=== PATIENT | male | born 1985 | race Caucasian/White ===

== ENCOUNTER 2016-12-06 15:15 | Inpatient (IN) | payer OTHER ==
[~2016-12-06] VITALS: Ht 172.7 cm; Wt 53.5 kg
[~2016-12-06 15:15] MED LIST: ATIVAN1 MG PO; BUSPIRONE5 M1 PO; DOCUSATE100 M1 PO; HYDROXYZINE HCL25 MG PO; LEVAQUIN750 MG PO; NAPROXEN250 MG PO; STRIBILD1 TAB PO; SULFAMETHOXAZOL1 PO1 PO; [UNRECOGNIZED DRUG - OTHER] PO
[2016-12-06 17:16] LABS: BASOPHIL % 0.4 % (0-2); PLATELET COUNT 190 x10^3mcL (130-400); RED CELL DISTRIBUTION WIDTH 13.6 % (11.5-14.5)
[2016-12-06 17:25] LABS: CALCIUM 8.8 mg/dL (8.5-10.1); CARBON DIOXIDE 26.5 mmol/L (21-32); CHLORIDE SERUM 103 mmol/L (98-107); CREATININE SERUM 0.9 mg/dL (0.7-1.3); GFR1 > 60 mL/min; GLUCOSE SERUM 93 mg/dL (74-106); SODIUM SERUM 135 mmol/L (136-145)
[2016-12-06 17:26] LABS: microscopic required? NO
[2016-12-06 17:32] LABS: UA SPECIFIC GRAVITY <=1.005 (1.005-1.035); urine erythrocyte NEGATIVE (NEGATIVE)
[2016-12-06 17:37] LABS: ALBUMIN 2.9 g/dL (3.4-5.0); ALKALINE PHOSPHATASE 78 U/L (46-116); ALT/SGPT 75 U/L (16-63); AST/SGOT 85 U/L (15-37); BILIRUBIN TOTAL 0.28 mg/dL (0.20-1.00); LACTIC DEHYDROGENASE (LDH) 99 U/L (100-190); TOTAL PROTEIN, SERUM 10.5 g/dL (6.4-8.2)
[2016-12-06 17:41] LABS: CK-MB 0.6 ng/mL (0-3.6)
[2016-12-06 19:13] LABS: MAGNESIUM 1.8 mg/dL (1.8-2.4); PHOSPHOROUS 3.7 mg/dL (2.5-4.9)
[2016-12-06 19:15] LABS: CHOLESTEROL/HDL RATIO 3.1
[2016-12-06 19:20] LABS: T3 TOTAL 1.15 ng/mL
[2016-12-06 19:23] LABS: FREE THYROXINE INDEX 2.9 ug/dL (1.4-4.5)
[2016-12-06 20:10] LABS: AMPHETAMINE QUAL UR NONE DETECTED (NEG <=1000)
[2016-12-06] MEDS ORDERED: ATIVAN1 MG PO (20:26)
[2016-12-06 21:34] VITALS: BP 113/83
[2016-12-06 23:31] VITALS: BP 113/83
[2016-12-07 05:19] VITALS: BP 108/65
[2016-12-07 06:10] LABS: CALCIUM 8.1 mg/dL (8.5-10.1); CARBON DIOXIDE 26.6 mmol/L (21-32); CHLORIDE SERUM 106 mmol/L (98-107); CREATININE SERUM 0.8 mg/dL (0.7-1.3); GFR1 > 60 mL/min; GLUCOSE SERUM 98 mg/dL (74-106); POTASSIUM SERUM 3.7 mmol/L (3.5-5.1); SODIUM SERUM 140 mmol/L (136-145)
[2016-12-07 06:11] LABS: BASOPHIL % 0.6 % (0-2); PLATELET COUNT 159 x10^3mcL (130-400); RED CELL DISTRIBUTION WIDTH 13.5 % (11.5-14.5)
[2016-12-07 10:11] VITALS: BP 94/56
[2016-12-07 13:41] VITALS: BP 104/68
[2016-12-07 17:05] VITALS: BP 106/68
[2016-12-07 22:04] VITALS: BP 108/71
[2016-12-08 05:26] VITALS: BP 96/59
[2016-12-08 06:05] LABS: BASOPHIL % 0.9 % (0-2); PLATELET COUNT 211 x10^3mcL (130-400); RED CELL DISTRIBUTION WIDTH 13.5 % (11.5-14.5)
[2016-12-08 06:16] LABS: CALCIUM 8.4 mg/dL (8.5-10.1); CARBON DIOXIDE 30.3 mmol/L (21-32); CHLORIDE SERUM 105 mmol/L (98-107); CREATININE SERUM 0.9 mg/dL (0.7-1.3); GFR1 > 60 mL/min; GLUCOSE SERUM 99 mg/dL (74-106); POTASSIUM SERUM 3.9 mmol/L (3.5-5.1); SODIUM SERUM 139 mmol/L (136-145)
[2016-12-08 08:15] VITALS: BP 101/64
[2016-12-08 12:20] VITALS: BP 101/57
[2016-12-08 18:03] VITALS: BP 99/63
[2016-12-08 21:57] VITALS: BP 101/62
[2016-12-09 05:25] VITALS: BP 98/54
[2016-12-09 06:23] LABS: CALCIUM 8.6 mg/dL (8.5-10.1); CHLORIDE SERUM 106 mmol/L (98-107); CREATININE SERUM 0.9 mg/dL (0.7-1.3); GFR1 > 60 mL/min; GLUCOSE SERUM 98 mg/dL (74-106); POTASSIUM SERUM 4.3 mmol/L (3.5-5.1); SODIUM SERUM 141 mmol/L (136-145)
[2016-12-09 06:28] LABS: BASOPHIL % 0.5 % (0-2); PLATELET COUNT 229 x10^3mcL (130-400); RED CELL DISTRIBUTION WIDTH 13.4 % (11.5-14.5)
[2016-12-09 10:00] VITALS: BP 94/59
[2016-12-09] MEDS ORDERED: ZIT250 PO (10:35)
[2016-12-09] MEDS ORDERED: LEVAQUIN750 MG PO (10:37)
[2016-12-09 11:47] VITALS: BP 94/59
== END 2016-12-09 12:38 | disposition home or self-care (01) | DRG 893 ==
LOC: ED 15:15 → DU 18:13
PROVIDERS: Emergency Medicine; ADMIT Family Medicine
DX: B20 Human immunodeficiency virus [HIV] disease (principal); J18.9 Pneumonia, unspecified organism; E87.1 Hypo-osmolality and hyponatremia; E43 Unspecified severe protein-calorie malnutrition; B37.0 Candidal stomatitis; Z68.1 Body mass index [BMI] 19.9 or less, adult; F41.9 Anxiety disorder, unspecified; Z96.641 Presence of right artificial hip joint; Z53.29 Procedure and treatment not carried out because of patient's decision for other reasons; D64.9 Anemia, unspecified; Z90.49 Acquired absence of other specified parts of digestive tract; Z79.899 Other long term (current) drug therapy; Z83.3 Family history of diabetes mellitus; Z84.89 Family history of other specified conditions; Z82.49 Family history of ischemic heart disease and other diseases of the circulatory system
CPT/HCPCS: 36600; 83880; 84439; 94150; J0456; J0696; J2060; J7030; J7050; Q0092

== ENCOUNTER 2017-02-08 16:24 | Emergency (ER) | payer OTHER ==
[~2017-02-08 16:24] MED LIST changes: +ZIT250 PO
[2017-02-08 21:40] VITALS: BP 113/74
== END 2017-02-08 21:40 | disposition home or self-care (01) ==
LOC: ED 16:24
DX: J02.9 Acute pharyngitis, unspecified (principal); J40 Bronchitis, not specified as acute or chronic; F41.9 Anxiety disorder, unspecified
CPT/HCPCS: J1885

== ENCOUNTER 2017-05-26 14:40 | Emergency (ER) | payer OTHER ==
[~2017-05-26] VITALS: Ht 172.7 cm; Wt 52.6 kg
[2017-05-26 14:47] VITALS: Ht 172.7 cm; Wt 52.6 kg
[2017-05-26 15:47] VITALS: BP 115/72
== END 2017-05-26 15:47 | disposition home or self-care (01) ==
LOC: ED 14:40
DX: K62.89 Other specified diseases of anus and rectum (principal)

== ENCOUNTER 2017-06-08 21:22 | Emergency (ER) | payer OTHER ==
[~2017-06-08] VITALS: Ht 172.7 cm; Wt 59.0 kg
[2017-06-08 21:48] VITALS: Ht 172.7 cm; Wt 59.0 kg
[2017-06-09 00:50] VITALS: BP 113/53
== END 2017-06-09 00:50 | disposition home or self-care (01) ==
LOC: ED 21:22
DX: T18.128A Food in esophagus causing other injury, initial encounter (principal); F41.9 Anxiety disorder, unspecified; X58.XXXA Exposure to other specified factors, initial encounter; Y93.89 Activity, other specified; Y92.89 Other specified places as the place of occurrence of the external cause; Y99.8 Other external cause status
CPT/HCPCS: Q0162

== ENCOUNTER 2017-07-19 10:18 | Inpatient (IN) | payer OTHER ==
[~2017-07-19] VITALS: Ht 172.7 cm; Wt 54.1 kg
[2017-07-19 12:15] LABS: BASOPHIL % 0.3 % (0-2); RED CELL DISTRIBUTION WIDTH 13.1 % (11.5-14.5)
[2017-07-19 12:17] LABS: PLATELET COUNT 96 x10^3mcL (130-400)
[2017-07-19 12:27] LABS: CALCIUM 8.1 mg/dL (8.5-10.1); CHLORIDE SERUM 95 mmol/L (98-107); CREATININE SERUM 0.8 mg/dL (0.7-1.3); GFR1 > 60 mL/min; GLUCOSE SERUM 96 mg/dL (74-106); POTASSIUM SERUM 3.8 mmol/L (3.5-5.1); SODIUM SERUM 133 mmol/L (136-145)
[2017-07-19 12:31] LABS: ALKALINE PHOSPHATASE 91 U/L (46-116); ALT/SGPT 89 U/L (16-63); AST/SGOT 176 U/L (15-37); BILIRUBIN TOTAL 0.83 mg/dL (0.20-1.00)
[2017-07-19 12:34] LABS: ALBUMIN 2.6 g/dL (3.4-5.0); TOTAL PROTEIN, SERUM 9.6 g/dL (6.4-8.2)
[2017-07-19 12:44] LABS: T3 TOTAL 0.66 ng/mL
[2017-07-19 12:46] LABS: MAGNESIUM 1.8 mg/dL (1.8-2.4)
[2017-07-19 12:48] LABS: CHOLESTEROL/HDL RATIO 2.1
[2017-07-19 12:51] LABS: FREE T4 0.74 ng/dL (0.76-1.46); FREE THYROXINE INDEX 1.5 ug/dL (1.4-4.5); T4(THYROXINE) 5.1 ug/dL (4.7-13.3)
[2017-07-19 13:26] VITALS: BP 119/81
[2017-07-19 13:28] VITALS: Ht 172.7 cm; Wt 54.1 kg
[2017-07-19 17:52] VITALS: BP 128/79
[2017-07-19 18:40] LABS: microscopic required? NO
[2017-07-19 18:52] LABS: urine erythrocyte NEGATIVE (NEGATIVE)
[2017-07-19 20:57] VITALS: BP 141/90
[2017-07-20 06:02] VITALS: BP 116/76
[2017-07-20 06:17] LABS: BASOPHIL % 0.1 % (0-2); RED CELL DISTRIBUTION WIDTH 13.2 % (11.5-14.5)
[2017-07-20 06:42] LABS: PLATELET COUNT 93 x10^3mcL (130-400)
[2017-07-20 06:50] LABS: CALCIUM 7.8 mg/dL (8.5-10.1); CARBON DIOXIDE 23.8 mmol/L (21-32); CHLORIDE SERUM 99 mmol/L (98-107); CREATININE SERUM 0.7 mg/dL (0.7-1.3); GFR1 > 60 mL/min; GLUCOSE SERUM 78 mg/dL (74-106); MAGNESIUM 1.9 mg/dL (1.8-2.4); PHOSPHOROUS 2.2 mg/dL (2.5-4.9); POTASSIUM SERUM 3.8 mmol/L (3.5-5.1); SODIUM SERUM 131 mmol/L (136-145)
[2017-07-20 08:50] VITALS: BP 126/80
[2017-07-20 13:56] VITALS: BP 120/85
[2017-07-20 15:54] LABS: AMPHETAMINE QUAL UR NONE DETECTED (NEG <=1000)
[2017-07-20 18:17] VITALS: BP 116/76
[2017-07-20 20:37] VITALS: BP 102/70
[2017-07-21 05:14] VITALS: BP 108/64
[2017-07-21 06:13] LABS: BASOPHIL % 0.5 % (0-2); RED CELL DISTRIBUTION WIDTH 13.1 % (11.5-14.5)
[2017-07-21 06:58] LABS: CALCIUM 8.2 mg/dL (8.5-10.1); CARBON DIOXIDE 28.8 mmol/L (21-32); CHLORIDE SERUM 102 mmol/L (98-107); CREATININE SERUM 0.7 mg/dL (0.7-1.3); GFR1 > 60 mL/min; GLUCOSE SERUM 87 mg/dL (74-106); MAGNESIUM 1.8 mg/dL (1.8-2.4); PHOSPHOROUS 2.9 mg/dL (2.5-4.9); POTASSIUM SERUM 4.2 mmol/L (3.5-5.1); SODIUM SERUM 136 mmol/L (136-145)
[2017-07-21 07:00] LABS: PLATELET COUNT 100 x10^3mcL (130-400)
[2017-07-21 09:14] VITALS: BP 100/59
[2017-07-21 17:03] VITALS: BP 108/78
[2017-07-21 20:29] VITALS: BP 106/69
[2017-07-22 06:21] VITALS: BP 104/66
[2017-07-22 07:14] LABS: BASOPHIL % 0.6 % (0-2)
[2017-07-22 07:36] LABS: PLATELET COUNT 117 x10^3mcL (130-400)
[2017-07-22 09:06] VITALS: BP 120/80
[2017-07-22 17:02] VITALS: BP 104/72
[2017-07-22 22:22] VITALS: BP 109/74
[2017-07-23 06:14] VITALS: BP 105/61
[2017-07-23 07:07] LABS: BASOPHIL % 0.4 % (0-2)
[2017-07-23 07:27] LABS: PLATELET COUNT 129 x10^3mcL (130-400)
[2017-07-23 07:52] LABS: CALCIUM 8.5 mg/dL (8.5-10.1); CARBON DIOXIDE 29.2 mmol/L (21-32); CHLORIDE SERUM 101 mmol/L (98-107); CREATININE SERUM 0.7 mg/dL (0.7-1.3); GFR1 > 60 mL/min; GLUCOSE SERUM 96 mg/dL (74-106); POTASSIUM SERUM 4.1 mmol/L (3.5-5.1); SODIUM SERUM 134 mmol/L (136-145)
[2017-07-23 09:59] VITALS: BP 106/65
[2017-07-23 11:56] VITALS: BP 106/65
[2017-07-23] MEDS ORDERED: ATIVAN1 MG PO (12:28)
[2017-07-23] MEDS ORDERED: DIFLUCAN200 MG PO (12:29)
[2017-07-23] MEDS ORDERED: CULTURELLE DIGE1 CAP PO (12:31)
[2017-07-23] MEDS ORDERED: LEVAQUIN750 MG PO (12:31)
[2017-07-23] MEDS ORDERED: PAX20 PO (12:31)
== END 2017-07-23 13:10 | disposition home or self-care (01) | DRG 139 ==
LOC: ED 10:18 → DU 12:00 → MU 07-21 06:41
PROVIDERS: Emergency Medicine; Family Medicine; Student in an Organized Health Care Education/Training Program
DX: J18.1 Lobar pneumonia, unspecified organism (principal); E43 Unspecified severe protein-calorie malnutrition; E87.3 Alkalosis; D69.6 Thrombocytopenia, unspecified; E87.1 Hypo-osmolality and hyponatremia; F41.9 Anxiety disorder, unspecified; J02.9 Acute pharyngitis, unspecified; D64.9 Anemia, unspecified; Z68.1 Body mass index [BMI] 19.9 or less, adult; B37.9 Candidiasis, unspecified; Z23 Encounter for immunization
CPT/HCPCS: 36600; 83880; 84439; 94150; J1885; J1956; J2060; J7030; J7620; Q0092; Q0163

== ENCOUNTER 2017-07-27 20:23 | Emergency (ER) | payer OTHER ==
[~2017-07-27] VITALS: Ht 172.7 cm; Wt 53.5 kg
[~2017-07-27 20:23] MED LIST changes: +CULTURELLE DIGE1 CAP PO; +DIFLUCAN200 MG PO; +PAX20 PO
[2017-07-27 20:35] VITALS: Ht 172.7 cm; Wt 53.5 kg
[2017-07-27 22:56] VITALS: BP 111/70
== END 2017-07-27 22:56 | disposition home or self-care (01) ==
LOC: ED 20:23
DX: J18.9 Pneumonia, unspecified organism (principal)

== ENCOUNTER 2017-08-14 19:40 | Emergency (ER) | payer OTHER ==
[2017-08-14 22:29] VITALS: BP 109/70
== END 2017-08-14 22:29 | disposition home or self-care (01) ==
LOC: ED 19:40
DX: R06.02 Shortness of breath (principal); T37.0X5A Adverse effect of sulfonamides, initial encounter; Y92.89 Other specified places as the place of occurrence of the external cause

== ENCOUNTER 2017-08-29 15:06 | Emergency (ER) | payer OTHER ==
[~2017-08-29] VITALS: Ht 172.7 cm; Wt 54.4 kg
[2017-08-29 15:16] VITALS: Ht 172.7 cm; Wt 54.4 kg
[2017-08-29 17:20] LABS: BASOPHIL % 0.4 % (0-2); PLATELET COUNT 146 x10^3mcL (130-400); RED CELL DISTRIBUTION WIDTH 13.6 % (11.5-14.5)
[2017-08-29 17:23] LABS: CALCIUM 8.7 mg/dL (8.5-10.1); CARBON DIOXIDE 28.3 mmol/L (21-32); CHLORIDE SERUM 102 mmol/L (98-107); CREATININE SERUM 0.8 mg/dL (0.7-1.3); GFR1 > 60 mL/min; GLUCOSE SERUM 87 mg/dL (74-106); SODIUM SERUM 133 mmol/L (136-145)
[2017-08-29 17:57] VITALS: BP 112/74
== END 2017-08-29 17:59 | disposition home or self-care (01) ==
LOC: ED 15:06
PROVIDERS: Emergency Medicine
DX: R07.9 Chest pain, unspecified (principal); R06.02 Shortness of breath
CPT/HCPCS: 36415; 85378; J1885

== ENCOUNTER 2017-08-31 11:54 | Emergency (ER) | payer OTHER ==
[~2017-08-31] VITALS: Ht 172.7 cm; Wt 54.0 kg
[2017-08-31 12:55] LABS: BASOPHIL % 0.4 % (0-2); PLATELET COUNT 154 x10^3mcL (130-400); RED CELL DISTRIBUTION WIDTH 13.9 % (11.5-14.5)
[2017-08-31 13:09] LABS: microscopic required? NO
[2017-08-31 13:17] LABS: FREE THYROXINE INDEX 2.3 ug/dL (1.4-4.5); T4(THYROXINE) 7.7 ug/dL (4.7-13.3)
[2017-08-31 13:21] LABS: T3 TOTAL 1.25 ng/mL
[2017-08-31 13:23] LABS: urine erythrocyte NEGATIVE (NEGATIVE)
[2017-08-31 13:26] LABS: CALCIUM 8.3 mg/dL (8.5-10.1); CARBON DIOXIDE 27.7 mmol/L (21-32); CHLORIDE SERUM 104 mmol/L (98-107); GFR1 > 60 mL/min; GLUCOSE SERUM 80 mg/dL (74-106); POTASSIUM SERUM 3.7 mmol/L (3.5-5.1); SODIUM SERUM 138 mmol/L (136-145)
[2017-08-31 13:39] LABS: ERYTHROCYTE SED RATE 80 mm/hr (0-15)
[2017-08-31 13:44] LABS: ALKALINE PHOSPHATASE 69 U/L (46-116); ALT/SGPT 56 U/L (16-63); AST/SGOT 62 U/L (15-37); BILIRUBIN TOTAL 0.4 mg/dL (0.20-1.00); C REACTIVE PROTEIN 0.3 mg/dL (<=0.9)
[2017-08-31 13:56] LABS: CK-MB < 0.5 ng/mL (0-3.6); CREATINE KINASE 84 U/L (39-308)
[2017-08-31 14:04] VITALS: BP 117/90
[2017-08-31 14:14] LABS: FREE T4 0.85 ng/dL (0.76-1.46)
[2017-08-31 14:15] LABS: ALBUMIN 3.3 g/dL (3.4-5.0); TOTAL PROTEIN, SERUM 9.3 g/dL (6.4-8.2)
== END 2017-08-31 14:04 | disposition home or self-care (01) ==
LOC: ED 11:54
PROVIDERS: Specialist
DX: J20.9 Acute bronchitis, unspecified (principal); J02.9 Acute pharyngitis, unspecified
CPT/HCPCS: 36600; 83880; 84439; 85378; Q9967

== ENCOUNTER 2017-10-17 17:35 | Emergency (ER) | payer MEDICAID ==
[~2017-10-17] VITALS: Ht 172.7 cm; Wt 56.2 kg
[2017-10-17 17:42] VITALS: Ht 172.7 cm; Wt 56.2 kg
[2017-10-17 19:22] VITALS: BP 106/72
== END 2017-10-17 19:22 | disposition home or self-care (01) ==
LOC: ED 17:35
DX: R51 Headache (principal)

== ENCOUNTER 2018-12-08 00:03 | Emergency (ER) | payer OTHER ==
[~2018-12-08] VITALS: Ht 172.7 cm; Wt 53.1 kg
[2018-12-08 00:17] VITALS: BP 101/63; Ht 172.7 cm; Wt 53.1 kg
== END 2018-12-08 03:11 | disposition home or self-care (01) ==
LOC: ED 00:03
DX: J40 Bronchitis, not specified as acute or chronic (principal); J02.9 Acute pharyngitis, unspecified; F41.9 Anxiety disorder, unspecified

== ENCOUNTER 2019-01-02 15:43 | Emergency (ER) | payer OTHER ==
[~2019-01-02] VITALS: Ht 172.7 cm; Wt 51.7 kg
[2019-01-02 16:06] VITALS: Ht 172.7 cm; Wt 51.7 kg
[2019-01-02 17:31] LABS: microscopic required? YES; urine erythrocyte 3+ (NEGATIVE)
[2019-01-02 18:03] VITALS: BP 112/75
== END 2019-01-02 18:03 | disposition home or self-care (01) ==
LOC: ED 15:43
PROVIDERS: Emergency Medicine
DX: N34.2 Other urethritis (principal); B37.0 Candidal stomatitis; F41.9 Anxiety disorder, unspecified
CPT/HCPCS: 87491; 87591; J0696

== ENCOUNTER 2019-11-05 21:47 | Emergency (ER) | payer OTHER, SELFPAY ==
[~2019-11-05] VITALS: Ht 172.7 cm; Wt 53.1 kg
[2019-11-05 21:49] VITALS: Ht 172.7 cm; Wt 53.1 kg
[2019-11-05 23:16] VITALS: BP 119/75
== END 2019-11-05 23:16 | disposition home or self-care (01) ==
LOC: ED 21:47
DX: B37.0 Candidal stomatitis (principal); L21.9 Seborrheic dermatitis, unspecified; Z20.828 Contact with and (suspected) exposure to other viral communicable diseases
CPT/HCPCS: U0003-CS

== ENCOUNTER 2019-12-05 18:29 | Emergency (ER) | payer OTHER ==
[~2019-12-05] VITALS: Ht 172.7 cm; Wt 53.1 kg
[2019-12-05 18:32] VITALS: Ht 172.7 cm; Wt 53.1 kg
[2019-12-05 20:10] VITALS: BP 97/63
== END 2019-12-05 20:10 | disposition home or self-care (01) ==
LOC: ED 18:29
DX: F41.1 Generalized anxiety disorder (principal); B20 Human immunodeficiency virus [HIV] disease
CPT/HCPCS: J2060; Q0092

== ENCOUNTER 2020-03-07 15:26 | Inpatient (IN) | payer OTHER, SELFPAY ==
[~2020-03-07] VITALS: Ht 172.7 cm; Wt 51.3 kg
[2020-03-07 15:29] VITALS: Ht 172.7 cm; Wt 51.3 kg
--- NOTE | 2020-03-07 16:34 | NUR ---
PT PLACED ON MONITOR. RT AT BEDSIDE. LAB DRAWN. IV STARTED. UA COLLECTED
[2020-03-07 17:00] LABS: RED CELL DISTRIBUTION WIDTH 12.6 % (11.5-14.5)
[2020-03-07 17:13] LABS: PLATELET COUNT 122 x10^3mcL (130-400)
[2020-03-07 17:16] LABS: ALKALINE PHOSPHATASE 76 U/L (46-116); ALT/SGPT 68 U/L (16-63); AST/SGOT 174 U/L (15-37); BILIRUBIN TOTAL 0.9 mg/dL (0.20-1.00); CALCIUM 6.6 mg/dL (8.5-10.1); CARBON DIOXIDE 26.3 mmol/L (21-32); CHLORIDE SERUM 88 mmol/L (98-107); CREATININE SERUM 1.1 mg/dL (0.7-1.3); GFR1 > 60 mL/min; GLUCOSE SERUM 95 mg/dL (74-106); LACTIC DEHYDROGENASE (LDH) 166 U/L (100-190); POTASSIUM SERUM 3.2 mmol/L (3.5-5.1)
[2020-03-07 17:26] LABS: ALBUMIN 1.8 g/dL (3.4-5.0)
[2020-03-07 17:28] LABS: SODIUM SERUM 119 mmol/L (136-145)
[2020-03-07 17:45] LABS: MONOCYTE 5 % (0-7); SEGMENTED NEUTROPHILS 78 % (37-75)
[2020-03-07 17:46] LABS: BAND NEUTROPHIL 11 % (0-10); BASOPHIL 0 % (0-2); PLATELET MORPHOLOGY PLATELETS DECREASED; rbc morphology (normal/abnorm) ABNORMAL (NORMAL)
[2020-03-07 17:47] LABS: C REACTIVE PROTEIN 13.4 mg/dL (<=0.9)
--- NOTE | 2020-03-07 18:51 | NUR ---
PT RESTING. STATES FEELING BETTER AT THIS TIME.
--- NOTE | 2020-03-07 18:57 | NUR ---
REPORT TO VIRGIL WATSON. AWARE PT NEEDS ADDITIONAL IV FLUID, UA SENT, AND WOULD LIKE IV ATIVAN FOR ANXIETY
[2020-03-07 19:41] LABS: microscopic required? YES; urine erythrocyte 2+ (NEGATIVE)
--- NOTE | 2020-03-07 20:05 | NUR ---
RESIDENT AT BEDSIDE
[2020-03-07 20:16] LABS: CALCIUM 6.6 mg/dL (8.5-10.1); CARBON DIOXIDE 25.6 mmol/L (21-32); CHLORIDE SERUM 91 mmol/L (98-107); CREATININE SERUM 0.9 mg/dL (0.7-1.3); GFR1 > 60 mL/min; GLUCOSE SERUM 98 mg/dL (74-106); POTASSIUM SERUM 3.4 mmol/L (3.5-5.1)
[2020-03-07 20:18] LABS: SODIUM SERUM 123 mmol/L (136-145)
[2020-03-07 20:26] LABS: MAGNESIUM 1.1 mg/dL (1.8-2.4); PHOSPHOROUS 3.4 mg/dL (2.5-4.9)
[2020-03-07 20:31] LABS: CHOLESTEROL/HDL RATIO 2.2
[2020-03-07] MEDS ORDERED: GENVOYA TABLET1 EACH PO (20:48)
[2020-03-07 21:03] LABS: FREE T4 1.13 ng/dL (0.76-1.46); FREE THYROXINE INDEX 2.2 ug/dL (1.4-4.5); T4(THYROXINE) 6.1 ug/dL (4.7-13.3)
[2020-03-07 21:21] LABS: T3 TOTAL 0.51 ng/mL
[2020-03-07 21:40] VITALS: BP 115/58
--- NOTE | 2020-03-07 22:00 | NUR ---
RECEIVED PT FROM ER, PT ADMIT FOR PNA, PT IS A/O X4, VERBAL RESPONSIVE. LUNG SOUND DIM JANE BASE, C/O CONSTANTLY COUGH WITH YELLOW SECRETION. PT IS ON TELE 22, ST, DENY ANY CHEST PIAN OR DISCOMFORT, BOWEL SOUND PRESENT ALL 4 QUADRANTS, NO DISTENTION, NO TENDER. PEDAL PULSE PRESENT BOTH FEET, NO EDEMA, IV AT RIGHT AC, NO LEAKING, NO INFILTRATION. PT STATE VERY ANXIOUS AT THIS MOMENT. AND HAS FEVER 102.4. INFORM THE PRIMARY NURSE RN. TYLENOL PO IS GIVEN RIGHT AWAY. ALL ADLS ASSIST, ALL NEED MET, CALL LIGHT IN REACH, WESLEY CONTINUE TO MONITOR.
--- NOTE | 2020-03-07 22:05 | NUR ---
RECEIVED PT FROM RESOURCE NURSE. PT AA/O X 4 ABLE TO MAKE NEEDS KNOWN. PT COMPLAINED OF ANXIETY. ATIVAN 1 MG PO GIVEN PER ORDER, WILL CONTINUE TO MONITOR.
--- NOTE | 2020-03-07 22:50 | NUR ---
TYLENOL PO WAS GIVEN. TEMPERATURE RE-CHECKED AND HAS DECREASED TO 100.8. COOLING MEASURES APPLIED. WILL CONTINUE TO MONITOR.
--- NOTE | 2020-03-08 00:13 | NUR ---
PT AWAKE IN BED, COMPLAINING OF CHEST PAIN FROM COUGHING, RIGHT LEG PAIN AND CRAMPING. MORPHINE 1 MG IVP GIVEN PER ORDER. RESPIRATIONS E/U ON ROOM AIR. ALL NEEDS MET. CALL BUTTON WITHIN REACH, WILL CONTINUE TO MONITOR.
[2020-03-08 00:34] LABS: CALCIUM 6.5 mg/dL (8.5-10.1); CARBON DIOXIDE 23.2 mmol/L (21-32); CHLORIDE SERUM 92 mmol/L (98-107); GFR1 > 60 mL/min; GLUCOSE SERUM 99 mg/dL (74-106)
[2020-03-08 00:37] LABS: POTASSIUM SERUM 3.7 mmol/L (3.5-5.1)
[2020-03-08 00:38] LABS: SODIUM SERUM 120 mmol/L (136-145)
--- NOTE | 2020-03-08 00:52 | NUR ---
SODIUM LEVEL 120. INFORMED DR. JOHNSTON. NEW ORDERS RECEIVED AND CARRIED OUT.
--- NOTE | 2020-03-08 01:30 | NUR ---
PT COMPLAINING OF COUGH. CALLED RESIDENT AND INFORMED DR. JOHNSTON AND DOCTOR STATED SHE WOULD PUT IN NEW ORDERS FOR MUCINEX. WILL CARRY OUT ORDERS.
[2020-03-08 04:36] LABS: CALCIUM 6.8 mg/dL (8.5-10.1); CARBON DIOXIDE 25.8 mmol/L (21-32); CHLORIDE SERUM 93 mmol/L (98-107); CREATININE SERUM 1.2 mg/dL (0.7-1.3); GFR1 > 60 mL/min; GLUCOSE SERUM 88 mg/dL (74-106); POTASSIUM SERUM 3.9 mmol/L (3.5-5.1); SODIUM SERUM 125 mmol/L (136-145)
[2020-03-08 05:25] VITALS: BP 78/35
--- NOTE | 2020-03-08 06:01 | NUR ---
PT'S BP 78/35 (MAP 50) AND 81/43 (MAP 55) AND PT HAVING CHEST PAIN. PT IS HAVING ANXIETY WELL. MADE AWARE, DR. PAUL CAME TO ASSESS PT AT BEDSIDE. GAVE ORDER FOR STAT EKG, MIDODRINE 5 MG PO, AND ATIVAN [address] PAUL WANTED TO GIVE MORPHINE IVP, DR. GALVAN STATED TO HOLD MORPHINE AT THIS TIME. ONE TIME ORDER FOR TORADOL IVP BUT PT NOT STATING CHEST PAIN AT THIS TIME. WILL CONTINUE TO CLOSELY MONITOR.
[2020-03-08 06:45] VITALS: BP 87/37
--- NOTE | 2020-03-08 07:00 | NUR ---
VS: BP 87/37 (MAP 53), SPO2 89% ON 2 LPM VIA NC, HR 121 BPM, RR 20, TEMP 99.8. DENIES CHEST PAIN AT THIS TIME. 1/2 NS IV FLUIDS INFUSING WELL TO RAC. PT STATED ATIVAN IVP HELPED HIM RELAX. NO ACUTE DISTRESS AT THIS TIME. CARE WILL BE ENDORSED TO AM NURSE.
--- NOTE | 2020-03-08 07:20 | NUR ---
RECIVED PATIENT FROM PM NURSE ALERT AND ORIENTED X 4, ABLE TO VERBALIZE NEEDS, NO C/O PAIN, LUNG SOUNDS DIMINISHED AT BASES, ON 3LPM O2 VIA NC, ON TELEMTRY NSR, MILD GENERALIZED WEAKNESS, BOWEL SOUNDS ACTIVE LAST BM 03/07, SKIN INTACT, IV IN RAC INFUSING 1/2 NS @ 50ML, PEDAL PULSES PRESENT AND EQUAL BILATERALLY, CONTIENT OF BLADDER, PATIENT PLEASANT AND COOPERATIVE
--- NOTE | 2020-03-08 08:20 | NUR ---
PATIENT C/O 10/24 GENEARLIZED PAIN, PRN NORCO ADMINISTERED PER EMAR
[2020-03-08 09:11] VITALS: BP 71/41
[2020-03-08 10:23] LABS: CALCIUM 6.6 mg/dL (8.5-10.1); CARBON DIOXIDE 24.2 mmol/L (21-32); CHLORIDE SERUM 95 mmol/L (98-107); CREATININE SERUM 1.2 mg/dL (0.7-1.3); GFR1 > 60 mL/min; GLUCOSE SERUM 84 mg/dL (74-106); POTASSIUM SERUM 4.4 mmol/L (3.5-5.1); SODIUM SERUM 125 mmol/L (136-145)
[2020-03-08 12:58] VITALS: BP 90/56
--- NOTE | 2020-03-08 13:10 | NUR ---
PPD ADMINISTERED ON R FA
--- NOTE | 2020-03-08 14:45 | NUR ---
RECEIVED FROM THE [facility] AND PATIENT IS AWAKE, ALERT AND ORIENTED TIMES FOUR. JOSEFERNANDEZJames DODSONS HISTORY OF RESPIRATORY ISSUES AND HAD PNEUMONIA AND A UNPRODUCTIVE COUGH AT THIS ITME. AXEL FLORESHS BEEN ON 02 AND TOELRATED OBO FAIR AND IS A LITTLE UNSTEADY AND ENCOURAGED TO ASK FOR ASSISTANCE. PATIENT HAS BEEN PLACED ON AND STRICT I AND O AND HAS BRP AND IS WITH IV FLUIDS AND ANITIOTICS LEVAQUIN, DIFLUCAN AND ROCEPHIN. PATIENT IS BEING SCREENED FOR COVID WELL TUBERCULOSIS PER DR LOCKE. PATIENT HAS HIV AND HAS BEEN EXPOSED TO COVID RECENTLY. FAMILY TO BRING IN HIS HIV MEDICATION AND SO FAR PATEINT HAS COUGH MEDICATION FAMILY BROUGHT IN. PATIENT IS VERY LEAN AND REDNESS NOTED TO THE FACE ON THE NOSE AND CHEEKS. PULES PALABLE AND PATIENT HAS NO COMPLAINT OF PAIN AT THIS TIME. HE STATES HE HAS PAIN WITH COUGH ONLY. WILL CONTINUE IN NEGATIVE FLOW ROOM INDICATED WITH STRICT ISOLATION PROCEDURES. NO ACUTE DISTRESS AT THIS TIME.
[2020-03-08 15:37] LABS: CARBON DIOXIDE 24.6 mmol/L (21-32); CHLORIDE SERUM 99 mmol/L (98-107); CREATININE SERUM 1.1 mg/dL (0.7-1.3); GFR1 > 60 mL/min; GLUCOSE SERUM 106 mg/dL (74-106); POTASSIUM SERUM 4.4 mmol/L (3.5-5.1); SODIUM SERUM 127 mmol/L (136-145)
--- NOTE | 2020-03-08 16:00 | NUR ---
PATIENT HAS HAD NORCO FOR PAIN AND IS REQUESTING HIS COUGH MEDICATION THAT IS NOT ON THE MAR. PATIENT MADE AWARE. NO COUGH HEARD AND NO MEDICATIONS CAME IN FORM THE FAMILY STATED IN REPORT.
[2020-03-08 16:37] LABS: AMPHETAMINE QUAL UR NONE DETECTED (See below)
[2020-03-08 17:32] VITALS: BP 93/64
--- NOTE | 2020-03-08 18:36 | NUR ---
PATIENT REMOVED HIS 02 AND WAS REMINDED TO REPLACE FREDDY. HIS SATURATION IN THE SIXTIES BUT HE IS ASYMPTOMATIC.
[2020-03-08 19:16] LABS: CALCIUM 7.3 mg/dL (8.5-10.1); CARBON DIOXIDE 25.6 mmol/L (21-32); CHLORIDE SERUM 99 mmol/L (98-107); CREATININE SERUM 1.1 mg/dL (0.7-1.3); GFR1 > 60 mL/min; GLUCOSE SERUM 119 mg/dL (74-106); POTASSIUM SERUM 4.2 mmol/L (3.5-5.1); SODIUM SERUM 130 mmol/L (136-145)
--- NOTE | 2020-03-08 20:10 | NUR ---
PATIENT IS A/O X4. FORGETFUL AT TIMES. SLOW RESPONSE. ON TELEMONITOR 22. NSR. DENIES CP AND CHEST PRESSURE. PULSES PALPABLE AND NO EDEMA NOTED. DIMINISHED BILATERAL BASES. ON [address] L [address] C. DENIES SOB. LAST BM 03/07/20. NORMAL AND FORMED. DENIES CONSTIPATION. VOIDS IN RR. URINAL AT BEDSIDE. MILD GENERALIZED WEAKNESS. AMBUALTORY. DENIES ANY PAIN AT THIS TIME. RAC IV CDI. BED IN LOWEST AND LOCKED POSITION. CALL LIGHT WITHIN REACH. WILL CONT TO MONITOR.
[2020-03-08 21:07] VITALS: BP 102/58
--- NOTE | 2020-03-08 22:00 | NUR ---
PATIENT C/O BACK PAIN. GAVE TYLENOL PRESCRIBED FOR PAIN PATIENTS BP IS 91/63 MMHG. WILL F/U WITH EFFECT OF MEDICATION.
--- NOTE | 2020-03-08 22:30 | NUR ---
PATIENT C/O COUGH. GAVE MUCINEX ABOUT 1 HOUR AGO AND PATIENT STATES THAT THE MEDICATION HAS HELPED RELIEVE HIS SYMPTOMS.
[2020-03-09 00:23] LABS: CARBON DIOXIDE 25.4 mmol/L (21-32); CHLORIDE SERUM 98 mmol/L (98-107); CREATININE SERUM 1.1 mg/dL (0.7-1.3); GFR1 > 60 mL/min; GLUCOSE SERUM 155 mg/dL (74-106); POTASSIUM SERUM 4.2 mmol/L (3.5-5.1); SODIUM SERUM 127 mmol/L (136-145)
--- NOTE | 2020-03-09 01:15 | NUR ---
PATIENT C/O RIGHT LEG PAIN. GAVE NORCO PRESCRIBED. WAS CONERNED ABOUT BP (91/63 MMHG) BUT SPOKE WITH DR STANLEY AND HE STATED IT WAS OKAY TO GO AHEAD AND GIVE THE NORCO.
--- NOTE | 2020-03-09 02:00 | NUR ---
RECIEVED INFO FROM CHARGE NURSE ABOUT NEPHROLOGY DR PATRICK. HE STATED TO MAKE SURE THE PATIENT DOES NOT DRINK TOO MUCH WATER SINCE HIS NA LEVEL IS TRENDING DOWN. WILL NOTIFY PATIENT OF THIS.
[2020-03-09 05:44] VITALS: BP 109/65
--- NOTE | 2020-03-09 06:45 | NUR ---
NOTIFIED PATIENT THAT HE NEEDS TO SPEAK WITH HIS MOTHER ABOUT BRINGING IN HIS HIV MEDICATION.
[2020-03-09 08:11] LABS: CALCIUM 7.4 mg/dL (8.5-10.1); CARBON DIOXIDE 24.4 mmol/L (21-32); CHLORIDE SERUM 100 mmol/L (98-107); GFR1 > 60 mL/min; GLUCOSE SERUM 119 mg/dL (74-106); MAGNESIUM 1.7 mg/dL (1.8-2.4); PHOSPHOROUS 2.4 mg/dL (2.5-4.9); POTASSIUM SERUM 4.1 mmol/L (3.5-5.1); SODIUM SERUM 129 mmol/L (136-145)
[2020-03-09 08:17] VITALS: BP 92/59
[2020-03-09 08:34] LABS: BASOPHIL % 0.1 % (0-2)
[2020-03-09 08:42] LABS: PLATELET COUNT 101 x10^3mcL (130-400)
--- NOTE | 2020-03-09 10:30 | NUR ---
ROCEPHIN - STILL UNAVAILABLE. CALLED PHARMACY. THEY WILL BRING IT UP.
[2020-03-09 11:13] LABS: CALCIUM 7.5 mg/dL (8.5-10.1); CARBON DIOXIDE 26.3 mmol/L (21-32); CHLORIDE SERUM 101 mmol/L (98-107); GFR1 > 60 mL/min; GLUCOSE SERUM 155 mg/dL (74-106); SODIUM SERUM 131 mmol/L (136-145)
--- NOTE | 2020-03-09 11:31 | NUR ---
RECEIVED ROCEPHIN FROM PHARMACY. WILL ADMINISTER. RECEIVING MED LATE, BUT IT IS ONLY SCHEDULED DAILY SO THE NEXT DOSE ISN'T UNTIL 0900 ON 03/10/20.
[2020-03-09 12:23] VITALS: BP 100/58
--- NOTE | 2020-03-09 15:28 | NUR ---
Initial Nutrition Assessment: 230A MOSESASHANTI 34M HR Nursing trigger: Appears underweight/malnourished Dx: PNA PMHx: HIV, multiple PNA, esophageal candidiasis and anxiety PSHx: appendectomy, ORIF of the femur Labs: (03/09) H/H 10.9/32L, Na 129L, BG 119H, Ca 7.4L, Phos 2.4L, Mg 1.7L, (03/07) AST 174H, ALT 68H, CRP 13.4H, Albumin 1.8L, HDL 33L. *CD4 count pending Meds: Bactrim, pro-amatine, Mucinex, Lactinex, Diflucan, Colace, sodium, solu-medrol, [place], Tylenol, Heparin, Levaquin, Rocephin Diet: Regular PO intake since admission: (03/09) B: 100% Ht: 172.72cm/68in Wt: 51.256kg/113lbs BMI: 17.2kg/m2 Bed scale: not accessible IBW: 70kg/154lbs %IBW: 73.22% UBW: unknown Age: 34 Food Allergies: unknown Edema: none noted Last BM: 03/07 Skin: skin intact Dominic: 22 Per H and P (03/09), This is a 34 y/o patient with PMH of HIV, multiple PNA, Esophageal candidiasis and anxiety presented to the ED with c/o cough and body aches. He states that was exposed to a Covid positive friend a week ago. His symptoms started 3-4 days ago, first it was a dry cough, on and off fever, which he didn't check and body aches. He states that his symptoms worsened today and prompted him to seek a help. Also, he endorses a chest pain exacerbated with cough. Patient endoses mouth thrush started 2-3 days ago, he uses antifugal solution but does not remembers the name. Otherwise, he denies SOB, any dysphagia, odynophagia, food intolerance, loss of smell/taste, abdominal pain, urinary or BM issues, recent traveling. Patient tested positive for HIV in 2009 and since then on HIV meds, currently on Genvoya. Last CD4 counts was >100, patient does not remember the exact number. Last admission was in July 2017 for CAP and mouth thrush and has been D/C Levofloxacin, Fluconazole 200 mg/daily, Lorazepam and Paroxetine 20mg/daily. Pt was admitted with dx: Sepsis, severe hyponatremia, oropharyngeal candidiasis, hypercoagulable state, thrombocytopenia, hypokalemia, hypocalcemia, hypochloremia, macrocytic anemia, severe PCM, chronic transaminitis, DVT RD Note (03/09/2020) Per progress note (03/09), pt was being r/o for TB, lying in bed, cough subsided and fever is getting better, and pt reported feeling anxious. RD tried contacting pt via bedside phone, but pt was not responding. Per pt's RN, she did not observe pt's PO intake today. RD attempted to communicate with pt via intercom, but RD was not able to hear pt clearly. Per RN shift reassessment note (03/08), pt on 2L NC, BM formed and brown, denied constipation or diarrhea. Problem with: N/V/D/C: unknown Problems with: Chewing: Swallowing: unknown Current appetite: unknown Recent wt change: unknown %wt change: unknown Height: unknown Vitamin/Supplement use: unknown Special diet at home: unknown Physical activity: unknown Nutrition education given (specify specific nutrition education and handout given): Education was not able to be provided d/t not being able to speak with pt. Food-drug interactions? Education given? n/a Estimated Nutritional Needs Based on ideal body weight (70kg) Energy: 0747-3072 kcal/day (30-45 kcal/kg for underweight and sepsis) Protein: 84-105 g/day (1.2-1.5 g/kg for underweight and sepsis) Fluid: 6615-7389 mL/day (1 mL/kcal) Nutrition Diagnosis: 1. Increased energy and protein needs r/t critical illness a/e/b pt has sepsis 2. Underweight r/t pathophysiological cause a/e/b pt BMI = 17.2kg/m2. Intervention 1. Continue with regular diet 2. Recommend MVI QD Recommendation provided to Dr. Curtis and Dr. Curtis acknowledged. Monitor/Evaluate Goal: PO intake at least 75% of estimated needs Monitor: PO intake, Labs, GI function, Body weight F/U in 2-3 days as high risk 03/11-
--- NOTE | 2020-03-09 15:29 | NUR ---
1. Continue with regular diet 2. Recommend MVI QD Recommendation provided to Dr. Curtis and Dr. Curtis acknowledged.
[2020-03-09 16:05] VITALS: BP 98/67
--- NOTE | 2020-03-09 17:45 | NUR ---
ORDER FOR SPUTUM CULTURE. UNABLE TO COLLECT PATIENT IS NOT COUGHING. NO PHLEGM. PATIENT IS AWARE THAT WE NEED THIS SAMPLE TO R/O TB. SPECIMEN CUP AT BEDSIDE. THIS NURSE HAS NOT HEARD THE PATIENT COUGH. NOTHING PRODUCTIVE.
--- NOTE | 2020-03-09 20:30 | NUR ---
PT. AWAKE, ALERT, ORIENTED TO SELF AND PLACE, BUT CONFUSED AT TIMES. PT. SOMETIMES SAYS THAT HE IS AT MY HOUSE OR WILL START A CONVERSATION THAT DOES NOT RELATE TO THE TOPIC ON HAND. BEHAVIOR ERATIC AND SOMEWHAT UNPREDICTABLE FAR IT RELATES TO CONVERSATION. PT. ABLE TO FOLLOW COMMANDS. DENIES HEADACHE OR DIZZINESS. BREATH SOUNDS CLEAR THROUGHOUT LUNG SUERO, RESP. EVEN, UNLABORED. BLL DIMINISHED. SR ON MONITOR. NO ECTOPIES NOTED. PEDAL PULSES STRONG. ABD. SOFT AND FLAT. BOWEL SOUNDS ACTIVE. IV HEPLOCKED, FLUSHING WELL. CALL LIGHT WITHIN REACH. SIDERAILS PADDED. BED LOW LAYING. PT ON ARBORN PRECAUTION.
[2020-03-09 20:49] VITALS: BP 117/80
--- NOTE | 2020-03-10 00:58 | NUR ---
PT. RESTING QUIETLY AT THIS TIME. EYES CLOSED, APPEARS TO BE SLEEPING. CALL LIGHT WITHIN REACH.
--- NOTE | 2020-03-10 03:15 | NUR ---
PT.'S IV OUT. PT. STATED THAT HIS IV SITE WAS FULL OF GLITTER LIKE "THINGS" AND HE FIXED IT. PT. CONTINUES TO BE CONFUSED. FOUR ATTEMPTS TO RESTART IV UNSUCCESSFUL. ANOTHER LICENSED NURSE ATTEMPTING TO INSERT NEW LINE.
--- NOTE | 2020-03-10 03:41 | NUR ---
SIZE 22 GAUGE INSERTED TO RFA. FLUSHING WELL, SITE INTACT.
[2020-03-10 05:53] VITALS: BP 102/65
--- NOTE | 2020-03-10 06:06 | NUR ---
PT.'S ALTERED LEVEL INCREASING THIS MORNING. PT. PACING THE ROOM, SPEAKING ABOUT LEAVING TO GO TO THE HOSPITAL. PT. IS SEEING THINGS AT THIS POINT. STATED THAT THERE WAS SOMEONE LAYING ON THE FLOOR. PT. APPEARS PARSNOID AND QUESTIONING ALL MY ACTIONS. PT. ALSO LEAVING HIS ROOM SEVERAL TIMES EVEN WHEN REORIENTED AND MADE AWARE THAT HE NEEDS TO STAY IN HIS ROOM FOR ISOLATION PRECAUTION. RESIDENT PAGED.
--- NOTE | 2020-03-10 06:34 | NUR ---
DR. CAM ON UNIT. MADE AWARE OF PATIENT'S SPORATIC, BEHAVIOR AND DISORIENTEION. ALSO SOME HALLUCINATION. ROOMS BEING ADJUSTED TO MOVE PT. CLOSER TO NURSES STAION FOR BETTER MONITORING AND FOR PATIENT'S SAFETY.
[2020-03-10 07:47] LABS: CALCIUM 8.3 mg/dL (8.5-10.1); CARBON DIOXIDE 23.5 mmol/L (21-32); CHLORIDE SERUM 101 mmol/L (98-107); CREATININE SERUM 1.2 mg/dL (0.7-1.3); GFR1 > 60 mL/min; GLUCOSE SERUM 137 mg/dL (74-106); MAGNESIUM 2.3 mg/dL (1.8-2.4); PHOSPHOROUS 3.2 mg/dL (2.5-4.9); POTASSIUM SERUM 4.2 mmol/L (3.5-5.1); SODIUM SERUM 132 mmol/L (136-145)
[2020-03-10 08:08] LABS: PLATELET COUNT 155 x10^3mcL (130-400); RED CELL DISTRIBUTION WIDTH 13.1 % (11.5-14.5)
[2020-03-10 08:09] VITALS: BP 107/69
--- NOTE | 2020-03-10 08:17 | NUR ---
RECIEVED PT IN A STABLE CONDITION MEDICALLY, HOWEVER THE PATIENT IS PACING IN HIS ROOM AND OCCASSIONALLY WANDERS AROUND THE HALLWAYS DESPITE BEING EDUCATED ON REMAINING IN HIS ROOM DUE TO HIM POTENTIALLY HAVING TB. HE IS ON TELE 22 SHOWING NSR, AND HE IS IN NO APPARENT PAIN OR DISTRESS. HE HAD A PPD DONE ON HIS RIGHT FOREARM AND IT IS TO BE READ TODAY AT 1300. BED IS IN THE LOW POSITION WITH THE CALL LIGHT IN REACH. WILL CONTINUE TO MONITOR.
[2020-03-10 08:23] LABS: BASOPHIL % 0 % (0-2)
[2020-03-10 17:25] LABS: CALCIUM 7.8 mg/dL (8.5-10.1); CARBON DIOXIDE 22.5 mmol/L (21-32); CHLORIDE SERUM 100 mmol/L (98-107); CREATININE SERUM 1.2 mg/dL (0.7-1.3); GFR1 > 60 mL/min; GLUCOSE SERUM 114 mg/dL (74-106); POTASSIUM SERUM 4.4 mmol/L (3.5-5.1); SODIUM SERUM 130 mmol/L (136-145)
--- NOTE | 2020-03-10 18:41 | NUR ---
PT REMAINED STABLE MEDICALLY THROUGHOUT THE SHIFT. HIS BEHAVIOR IS ERATIC AND HE FREQUENTLY WANDERS OUT OF HIS ROOM, REMOVES HIS TELEMETRY AND IVS, AND OVERALL IS NOT COMPLIANT WITH CARE. WHEN TALKING WITH HIM HE SPEAKS IN A WAY THAT DOES NOT MAKE SENSE. I EDUCATED HIM NUMEROUS TIMES REGARDING: NOT REMOVING IV LINES OR TELEMETRY, AND TO TRY AND COUGH UP SOME SPUTUM FOR HIS [employer] CX TO RULE OUT TB. DUE TO HIS NONCOMPLIANCE AN ORDER FOR A SITTER WAS PLACED. I SPOKE WITH HIS BROTHER THIS AFTERNOON WELL REGARDING THE ROOM CHANGE FROM 230 TO 246-B.THE PATIENTS FLUID RESTRICTION HAS BEEN INCREASED TO 1L. HE HAD A HEAD CT WITH IV CONTRAST ORDERED AND PERFORMED DUE TO THE PATIENTS ALTERED MENTAL STATE, AND THEY DECIDED TO USE CONTRAST TO HELP IDENTIFY IF THERE MAY BE A POSSIBLE MASS WHICH MAY BE CONTRIBUTING TO HIS ALTERED MENTAL STATE. I ASSESSED HIS RIGHT FOREARM WHERE HE HAD RECIEVED THE PPD, AND IT WAS NEGATIVE WITH NO INDURATION OR REDNESS NOTED. I ALSO WAS ABLE TO COLLECT A SPUTUM SAMPLE FROM HIM, HOWEVER IT WAS REJECTED FROM THE LAB DUE TO HAVING TOO MUCH SALIVA. I ASKED THE PATIENT IF IT WOULD BE OK FOR US TO TRY AND INDUCE SOME SPUTUM BUT HE REFUSED STATING HE WILL PRODUCE IT ON HIS OWN. UNFORTUNATELY THE SAMPLE THAT HE WANTED TO PRODUCE DESPITE ME EDUCATING HIM WAS REJECTED. I WILL ENDORSE TO THE ONCOMING NURSE TO TRY AND COLLECT A NEW SAMPLE, IF THEY ARE ABLE TO THEN 2 ADDITIONAL SAMPLES WILL BE REQUIRED, EACH BEING 8 HOURS APART. AIRBORN PRECAUTIONS ARE STILL IN PLACE. THE BED IS IN THE LOW POSITION AND THE CALL LIGHT IS IN REACH. WILL CONTINUE TO MONITOR.
--- NOTE | 2020-03-10 20:08 | NUR ---
RECEIVED PT FROM AM NURSE. PT UP AND WALKING AROUND ROOM. NO ACUTE RESP DISTRESS NOTED, BREATHING EVEN AND UNLABORED. DENIES CP/PRESSURE AT THIS TIME, SR HR 70. IV TO RH 22G PATENT AND INFUSING, ACCORDING AM NURSE THIS PT HAS PULLED OUT PREVIOUS IV'S, WILL CLOSELY MONITOR. ALL SAFETY PRECAUTIONS IN PLACE. SITTER AT BEDSIDE. WILL CONT TO MONITOR.
--- NOTE | 2020-03-10 23:30 | NUR ---
PT PULLED OUT IV ACCESS. REFUSING PLACEMENT OF ANOTHER IV. DR. VINCENT AWARE.
--- NOTE | 2020-03-11 01:55 | NUR ---
PT INSISTENT ON LEAVING AMA. TALKED TO MOTHER VIA REBECA (FRIEND) A PRODUCTION SOUND MIXER AND MADE HER AWARE OF SITUATION. AMA FORM IS SIGNED. AWAITING TRANSPORT.
--- NOTE | 2020-03-11 03:13 | NUR ---
PT WAS TOLD THAT THEY WOULD BE PICKED UP BY FAMILY IN MORNING. SLEEPING IN BED CURRENTLY.
[2020-03-11 06:23] VITALS: BP 102/61
--- NOTE | 2020-03-11 07:20 | NUR ---
PATIENT IS RESTING IN BED QUEITLY. NO ADDITIONAL DISTRESS NOTED. CALL LIGHT WITHIN REACH. WILL CONT TO MONITOR.
[2020-03-11 07:25] LABS: CALCIUM 7.7 mg/dL (8.5-10.1); CARBON DIOXIDE 24.5 mmol/L (21-32); CHLORIDE SERUM 102 mmol/L (98-107); CREATININE SERUM 1.1 mg/dL (0.7-1.3); GFR1 > 60 mL/min; GLUCOSE SERUM 105 mg/dL (74-106); MAGNESIUM 2.1 mg/dL (1.8-2.4); PHOSPHOROUS 3.7 mg/dL (2.5-4.9); SODIUM SERUM 133 mmol/L (136-145)
[2020-03-11 07:26] LABS: RED CELL DISTRIBUTION WIDTH 13.1 % (11.5-14.5)
--- NOTE | 2020-03-11 08:00 | NUR ---
EXPLAINED PLAN OF CARE AND PATIENT VERBALIZED UNDERSTANDING. PATIENT IS AAOX1 TO SELF ONLY AND CONFUSE MOST OF THE TIME. DOES NOT REALLY ANSWER QUESTIONS. NOTED TO BE RAMDON THOUGHTS/ANSWER. STABLE CONDITION AT THIS TIME. WILL CONT TO MONITOR.
[2020-03-11 08:35] LABS: PLATELET COUNT 122 x10^3mcL (130-400)
--- NOTE | 2020-03-11 09:38 | NUR ---
PATIENT TOOK ALL MORNING PILLS AND ASKED THE PATIENT HE HAS HIS GENVOYA PILLS. PER PATIENT, HIS MOTHER DROP IT OFF YESTERDAY. NO GENVOYA WAS FOUND IN THE PATIENT BIN OR PATIENT BAG (AT THE BEDSIDE.)
[2020-03-11 10:01] VITALS: BP 123/83
--- NOTE | 2020-03-11 10:45 | NUR ---
IV INSERTED TO THE RAC 20 GAUGE WITH GOOD BLOOD RETURN. SECURE WITH TEGADERM AND TAPE. WILL CONT TO MONITOR.
[2020-03-11 12:45] LABS: MONOCYTE 8 % (0-7); SEGMENTED NEUTROPHILS 80 % (37-75)
[2020-03-11 12:46] LABS: rbc morphology (normal/abnorm) ABNORMAL (NORMAL)
--- NOTE | 2020-03-11 13:30 | NUR ---
RFA PPD 72 HOUR RECHECK NOTED 0 DURATION. PATIENT HAS NON PRODUCTIVE COUGH AND CANNOT GIVE SPUTUM SAMPLE AT THIS TIME.
[2020-03-11 14:02] VITALS: BP 127/85
[2020-03-11 17:00] VITALS: BP 125/95
--- NOTE | 2020-03-11 18:43 | NUR ---
FOUND GEN[employer]BayYA BOTTLE. WILL GIVE MEDS PER ORDER.
--- NOTE | 2020-03-11 18:50 | NUR ---
PATIENT IS EATING HIS DINNER AT THIS TIME. RESTING IN BED QUEITLY. NO ADDITIONAL DISTRESS NOTED. WILL CONT TO MONITOR.
--- NOTE | 2020-03-11 20:00 | NUR ---
RECEIVED PT FROM AM NURSE. AWAKE AND ALERT, PERIODS OF CONFUSION. NO ACUTE RESP DISTRESS NOTED, BREATHING EVEN AND UNLABORED, LS DIMINISHED TO B/L BASES. DENIES CP/PRESSURE AT THIS TIME. BS+, DENIES N/V/D. VOIDS FREELY. PULSES PALPABLE, EXTREMITIES COOL/DRY, TREMORS NOTED. SKIN INTACT, ERYTHEMA TO FACE. AMBULATORY. ALL SAFETY PRECAUTIONS IN PLACE. WILL CONT TO MONITOR.
[2020-03-11 20:32] VITALS: BP 115/85
--- NOTE | 2020-03-12 02:48 | NUR ---
PT RESTING IN BED. NO ACUTE RESP DISTRESS NOTED, BREATHING EVEN AND UNLABORED. NO CP/PRESSURE AT THIS TIME. ALL SAFETY PRECAUTIONS IN PLACE. WILL CONT TO MONITOR.
[2020-03-12 05:33] VITALS: BP 117/65
--- NOTE | 2020-03-12 07:15 | NUR ---
0715AM: PATIENT IS RESTING IN BED QUEITLY, ASLEEP. NO ADDITIONAL DISTRESS NOTED. CALL LIGHT WITHIN REACH. WILL CONT TO MONITOR.
[2020-03-12 07:29] LABS: CALCIUM 7.7 mg/dL (8.5-10.1); CARBON DIOXIDE 22.2 mmol/L (21-32); CHLORIDE SERUM 104 mmol/L (98-107); CREATININE SERUM 1.1 mg/dL (0.7-1.3); GFR1 > 60 mL/min; GLUCOSE SERUM 124 mg/dL (74-106); POTASSIUM SERUM 4.1 mmol/L (3.5-5.1); SODIUM SERUM 133 mmol/L (136-145)
--- NOTE | 2020-03-12 08:00 | NUR ---
0800AM: EXPLAINED PLAN OF CARE TO PATIENT AND HE VERBALIZED UNDERSTANDING. PATIENT IS AAOX2 TO PERSON AND PLACE ONLY, WITH CONFUSION AT ALL TIMES. DENIES PAIN, DISTRESS, OR SOB AT THIS TIME. WILL CONT TO MONITOR.
[2020-03-12 08:30] VITALS: BP 130/72
[2020-03-12 09:05] LABS: RED CELL DISTRIBUTION WIDTH 13.5 % (11.5-14.5)
[2020-03-12 09:09] LABS: PLATELET COUNT 95 x10^3mcL (130-400)
--- NOTE | 2020-03-12 10:32 | NUR ---
DR CARLOS AT THE BEDSIDE AND MADE AWARE OF WBC 1.7. BACTRIM HAS BEEN DC PER MD. THAT MEDICATION IS CAUSING LOW WBC.
[2020-03-12 11:53] VITALS: BP 134/61
--- NOTE | 2020-03-12 12:47 | NUR ---
Follow-up Nutrition Assessment: Nursing trigger: Appears underweight/malnourished Dx: PNA PMHx: HIV, multiple PNA, esophageal candidiasis and anxiety PSHx: appendectomy, ORIF of the femur Labs: (03/12/20) Na 133 L, K 4.1, Glu 124 H, BUN 28 H, Cr 1.1, A1c 6.2, H/H 10.9/32. No lipid panel available. Meds: Ativan, Colace, Lactinex, Levaquin, Morphine sulfate, [place], Rocephin, Theragran, Tylenol, Zofran Diet: Regular PO intake since admission: (03/09/20) B: 100%, L: 50%, (03/11/20) B: 100%; overall average: 83% x 3 meals. This provides 1436 kcal and 49 gm protein, which meets 68% estimated kcal needs and 58% estimated protein needs. Ht: 172.72cm/68in Wt: 51.256kg/113lbs BMI: 17.2kg/m2 Bed scale: not accessible IBW: 70kg/154lbs %IBW: 73.22% UBW: unknown Age: 34 Food Allergies: unknown Edema: none noted Last BM: 03/07 Skin: skin intact Dominic: 22 Per H and P (03/09), This is a 34 y/o patient with PMH of HIV, multiple PNA, Esophageal candidiasis and anxiety presented to the ED with c/o cough and body aches. He states that was exposed to a Covid positive friend a week ago. His symptoms started 3-4 days ago, first it was a dry cough, on and off fever, which he didn't check and body aches. He states that his symptoms worsened today and prompted him to seek a help. Also, he endorses a chest pain exacerbated with cough. Patient endoses mouth thrush started 2-3 days ago, he uses antifugal solution but does not remembers the name. Otherwise, he denies SOB, any dysphagia, odynophagia, food intolerance, loss of smell/taste, abdominal pain, urinary or BM issues, recent traveling. Patient tested positive for HIV in 2009 and since then on HIV meds, currently on Genvoya. Last CD4 counts was >100, patient does not remember the exact number. Last admission was in July 2017 for CAP and mouth thrush and has been D/C Levofloxacin, Fluconazole 200 mg/daily, Lorazepam and Paroxetine 20mg/daily. Pt was admitted with dx: Sepsis, severe hyponatremia, oropharyngeal candidiasis, hypercoagulable state, thrombocytopenia, hypokalemia, hypocalcemia, hypochloremia, macrocytic anemia, severe PCM, chronic transaminitis, DVT RD Note (03/09/2020) Per progress note (03/09), pt was being r/o for TB, lying in bed, cough subsided and fever is getting better, and pt reported feeling anxious. RD tried contacting pt via bedside phone, but pt was not responding. Per pt's RN, she did not observe pt's PO intake today. RD attempted to communicate with pt via intercom, but RD was not able to hear pt clearly. Per RN shift reassessment note (03/08), pt on 2L NC, BM formed and brown, denied constipation or diarrhea. RD Note (03/12/2020) Per Physician Progress Note (03/11), Pt is still confused, better than yesterday, AAOx2. Solumedrol switched to Prednisone 40 mg PO BID x 2 days, then 40 mg PO daily x 5 days. Upon D/C, Pt to be D/C'd home; he lives with his mom and brother. RDN was unable to speak with Pt due to Pt sleeping. Pt continues to tolerate diet well. No concerns at this time. Estimated Nutritional Needs Based on ideal body weight (70kg) Energy: 1569-1457 kcal/day (30-45 kcal/kg for underweight and sepsis) Protein: 84-105 g/day (1.2-1.5 g/kg for underweight and sepsis) Fluid: 7172-5816 mL/day (1 mL/kcal) Nutrition Diagnosis: 1. Increased energy and protein needs r/t critical illness a/e/b pt has sepsis (ongoing) 2. Underweight r/t pathophysiological cause a/e/b pt BMI = 17.2kg/m2. (ongoing) Intervention 1. Continue with regular diet 2. Continue MVI QD Monitor/Evaluate Goal: PO intake at least 75% of estimated needs Monitor: PO intake, Labs, GI function, Body weight F/U in 3-5 days as moderate risk 03/15-03/18
[2020-03-12 12:57] LABS: BAND NEUTROPHIL 0 % (0-10); MONOCYTE 22 % (0-7); SEGMENTED NEUTROPHILS 57 % (37-75)
[2020-03-12 12:58] LABS: PLATELET MORPHOLOGY PLATELETS DECREASED; rbc morphology (normal/abnorm) NORMAL (NORMAL)
[2020-03-12 13:30] VITALS: BP 121/56
--- NOTE | 2020-03-12 13:30 | NUR ---
1330: RAC IV REMOVED DUE TO INFILTRATION, LFA NOTED TO BE MILDLY SWOLLEN. ENCOURAGE TO ELEVATE LEFT ARM. DENIES PAIN AT THIS TIME. WILL CONT TO MONITOR.
[2020-03-12 13:36] LABS: BASOPHIL 0 % (0-2)
[2020-03-12 16:21] VITALS: BP 112/75
--- NOTE | 2020-03-12 18:35 | NUR ---
PATIENT IS RESTING IN BED QUEITLY WATCHING TV AND DRINKING HIS SODA. NO ADDITIONAL DISTRESS NOTED. CALL LIGHT WITHIN REACH. WILL CONT TO MONITOR.
--- NOTE | 2020-03-12 19:30 | NUR ---
PT RECIEVED FROM DAY NJURSE. PT RESTING IN BED AT THIS TIME. DENIES PAIN OR DISCOMFORT. PT BREATHING E/U ON RA. NO S/S OF ACUTE DISTRESS NOTED AT THIS TIME. TELE 22, NSR AT THIS TIME. DENIES CP, NV, DIZZINESS, OR PALPATATIONS. PALPABLE PULSES, NO EDEMA NOTED AT THIS TIME. ABD SOFT AND FLAT. DENIES PAIN TO PALPATION. GEN WEAKNESS, PT AMBULATORY AT BASELINE. IV TO RFA, CDI. BED AT LOWEST POSITION. CALL LIGHT WITHIN REACH. WILL CONTINUE TO MONITOR.
[2020-03-12 20:18] VITALS: BP 111/61
--- NOTE | 2020-03-12 21:20 | NUR ---
PT COMPLAINING OF ANXIETY AT THIS TIME. MEDICATED WITH PRN ATIVAN AT THIS TIME. WILL CONTINUE TO MONITOR.
--- NOTE | 2020-03-12 23:30 | NUR ---
PT COMPLAINING OF MILD PAIN TO RLE. MEDICATED WITH PRN TYLENOL. WILL CONTINUE TO MONITOR.
[2020-03-13 05:51] VITALS: BP 116/86
--- NOTE | 2020-03-13 06:22 | NUR ---
PT RESTING IN BED AT THIS TIME. DENIES PAIN OR DISCOMFORT. PT BREATHING E/U ON RA. NO S/S OF ACUTE DISTRESS NOTED AT THIS TIME. ALL NEEDS AND CONCERNS ADDRESSED. WILL CONTINUE TO MONITOR.
--- NOTE | 2020-03-13 07:25 | NUR ---
RECEIVED PT FROM VALET MANAGER RN. AOX4 ABLE TO MAKE NEEDS KNOWN, DENIES LUNA/DIZZINESS. TELE 22 SR. LUNGS CTA, DENIES SOB/COUGH, RESP E/U, ON RA. ABDOMEN SOFT/ROUND, DENIES N/V/D. ON FLUID RESTRICTION OF 1L PER DAY. GENERALIZED WEAKNESS, PT AMBULATORY. NO C/O PAIN AT THIS TIME. IV TO RFA IN PLACE. CDI. WILL MONITOR PT FOR RESTLESSNESS AND AGITATION. CALL LIGHT IN REACH, WILL CONTINUE TO MONITOR.
[2020-03-13 07:49] LABS: CARBON DIOXIDE 22.5 mmol/L (21-32); CHLORIDE SERUM 103 mmol/L (98-107); GFR1 > 60 mL/min; GLUCOSE SERUM 144 mg/dL (74-106); MAGNESIUM 1.9 mg/dL (1.8-2.4); PHOSPHOROUS 3.9 mg/dL (2.5-4.9); POTASSIUM SERUM 4.2 mmol/L (3.5-5.1); SODIUM SERUM 134 mmol/L (136-145)
[2020-03-13 08:03] VITALS: BP 138/94
[2020-03-13 08:34] LABS: PLATELET COUNT 117 x10^3mcL (130-400)
[2020-03-13 11:19] LABS: BAND NEUTROPHIL 1 % (0-10); MONOCYTE 15 % (0-7); SEGMENTED NEUTROPHILS 68 % (37-75); rbc morphology (normal/abnorm) NORMAL (NORMAL)
[2020-03-13 11:20] LABS: PLATELET MORPHOLOGY PLATELETS DECREASED
[2020-03-13 11:47] VITALS: BP 121/72
--- NOTE | 2020-03-13 11:50 | NUR ---
PT C/O OF RT HIP PAIN "LIKE A 9 OR 10" MEDICATED PER EMAR
[2020-03-13 13:07] VITALS: BP 121/72
[2020-03-13] MEDS ORDERED: AZITHROMYCIN500 M3 PO (13:42)
[2020-03-13] MEDS ORDERED: PRE20 PO (13:48)
[2020-03-13] MEDS ORDERED: RXMED PO (13:49)
[2020-03-13] MEDS ORDERED: LEVAQUIN750 MG PO (13:51)
[2020-03-13] MEDS ORDERED: [UNRECOGNIZED DRUG - CODE] PO (13:52)
--- NOTE | 2020-03-13 15:05 | NUR ---
PT GIVEN DC INSTRUCTIONS, PT AWARE OF NEW MEDICATION SCHEDULE, AND MEDICATION THAT HE IS TO BEGIN TAKING TOMORROW. PT AWARE THAT PRESCRIPTION WAS SENT TO PHARMACY, HE WAS ADVICED TO CALL BACK IF HE HAS ISSUES WITH RECEIVING MEDICATION. PT ADVICED TO RETURN TO ED IF SYMPTOMS WORSEN. MEDICATION "GENVOYA" WAS RETURNED TO PT. DC PACKET GIVEN TO PT. IV CATHETER DC, INTACT. ALL QUESTIONS AND CONCERNS ADDRESSED, NO COMPLICATIONS NOTED DURING DISCHARGE. PT WAITING FOR FAMILY TO P/U.
== END 2020-03-13 15:15 | disposition home health service (06) | DRG 720 ==
LOC: ED 15:26 → DU 18:53
PROVIDERS: Emergency Medicine; Internal Medicine; ADMIT Family Medicine; ATTEND Family Medicine
DX: A41.9 Sepsis, unspecified organism (principal); J96.01 Acute respiratory failure with hypoxia; E43 Unspecified severe protein-calorie malnutrition; G93.40 Encephalopathy, unspecified; J18.9 Pneumonia, unspecified organism; D68.59 Other primary thrombophilia; D69.6 Thrombocytopenia, unspecified; E83.51 Hypocalcemia; Z20.828 Contact with and (suspected) exposure to other viral communicable diseases; E87.1 Hypo-osmolality and hyponatremia; E87.6 Hypokalemia; Z83.3 Family history of diabetes mellitus; Z82.49 Family history of ischemic heart disease and other diseases of the circulatory system; D64.9 Anemia, unspecified; Z68.1 Body mass index [BMI] 19.9 or less, adult
CPT/HCPCS: 36600; 83880; 84439; 85378; 86480; 87804; 94150; 97116-GP; G0378; J0456; J0696; J1450; J1644; J1956; J2060; J2270; J2920; J7030; J7040; J7512; Q9967; U0003

== ENCOUNTER 2020-04-19 18:36 | Emergency (ER) | payer OTHER ==
[~2020-04-19] VITALS: Ht 172.7 cm; Wt 52.2 kg
[~2020-04-19 18:36] MED LIST changes: +AZITHROMYCIN500 M3 PO; +GENVOYA TABLET1 EACH PO; +PRE20 PO; +RXMED PO; +[UNRECOGNIZED DRUG - CODE] PO
[2020-04-19 18:42] VITALS: BP 142/76; Ht 172.7 cm; Wt 52.2 kg
== END 2020-04-19 21:09 | disposition home or self-care (01) ==
LOC: ED 18:36
DX: R20.2 Paresthesia of skin (principal)

== ENCOUNTER 2020-04-23 22:34 | Emergency (ER) | payer OTHER ==
[~2020-04-23] VITALS: Ht 172.7 cm; Wt 52.2 kg
[2020-04-23 22:36] VITALS: BP 109/74; Ht 172.7 cm; Wt 52.2 kg
[2020-04-24 02:30] LABS: CALCIUM 8.9 mg/dL (8.5-10.1); CARBON DIOXIDE 25.9 mmol/L (21-32); CHLORIDE SERUM 103 mmol/L (98-107); CREATININE SERUM 0.8 mg/dL (0.7-1.3); GFR1 > 60 mL/min; GLUCOSE SERUM 96 mg/dL (74-106); POTASSIUM SERUM 4.1 mmol/L (3.5-5.1); SODIUM SERUM 136 mmol/L (136-145)
[2020-04-24 03:11] LABS: BASOPHIL % 0.5 % (0.2-1.5)
[2020-04-24 03:13] LABS: PLATELET COUNT 150 x10^3mcL (152-348); RED CELL DISTRIBUTION WIDTH 14.3 % (12.1-16.2)
[2020-04-24 03:26] LABS: rbc morphology (normal/abnorm) NORMAL (NORMAL)
== END 2020-04-24 04:09 | disposition home or self-care (01) ==
LOC: ED 22:34
PROVIDERS: Emergency Medicine
DX: F41.9 Anxiety disorder, unspecified (principal); B20 Human immunodeficiency virus [HIV] disease

== ENCOUNTER 2020-06-28 23:19 | Emergency (ER) | payer OTHER ==
[~2020-06-28] VITALS: Ht 172.7 cm; Wt 55.3 kg
[2020-06-28 23:28] VITALS: Ht 172.7 cm; Wt 55.3 kg
[2020-06-29 01:16] VITALS: BP 114/73
[2020-06-29] MEDS ORDERED: TESSALON PERLE100 MG PO (01:16)
[2020-06-29] MEDS ORDERED: PROAIR RES117 MCG/Ac INH (01:16)
== END 2020-06-29 01:32 | disposition home or self-care (01) ==
LOC: ED 23:19
DX: J06.9 Acute upper respiratory infection, unspecified (principal); Z20.828 Contact with and (suspected) exposure to other viral communicable diseases